=== PATIENT | male | born 1985 ===

== ENCOUNTER 2019-10-27 10:52 | Emergency (ER) | payer SELFPAY ==
[~2019-10-27] VITALS: Ht 188 cm; Wt 93.0 kg
[2019-10-27 12:09] VITALS: BP 133/87
== END 2019-10-27 14:00 | disposition home or self-care (01) ==
LOC: ER 10:52
DX: N52.9 Male erectile dysfunction, unspecified (principal); A64 Unspecified sexually transmitted disease; Z00.01 Encounter for general adult medical examination with abnormal findings; F12.10 Cannabis abuse, uncomplicated; F17.200 Nicotine dependence, unspecified, uncomplicated
CPT/HCPCS: 99281